=== PATIENT | male | born 2000 | race Caucasian/White ===

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

== ENCOUNTER 2022-02-24 10:51 | Day surgery (SDC) | payer BC, SELFPAY ==
[2022-02-24] VITALS (7 sets, daily range): BP systolic 110–138; BP diastolic 71–81; PULSE 57–74; RESP 16; TEMP 36.4–36.6; O2SAT 93–100; BMI 25.8
--- NOTE | 2022-02-24 | GASB_PTH ---
PATIENT: WES GILLIS LOC: EN U#:[id number] AGE/SX: 21/M ROOM: RE02/24/[address]: Dr. Juan C Kirby DO : 2000 BED: DIS: 02/24/2022 SPEC #: [id number] RECD: 02/24/22 14:09 STATUS: CHERYL MARISOL #: [id number] EBENEZER: 02/24/22 00:[address]: Juan C Kirby DEPT: SURGICAL PATHOLOGY RECD BY: Raymond Elizabeth ENTERED: 02/25/22 10:47 SP TYPE: Gastric Bx OT DR: Dr. Ha Huang MD Tissues: A - Gastric mucous membrane B - Duodenum, NOS C - Esophageal mucous membrane Procedures: Special Stain Group II Surgery Specimen Level IV Alcian Blue/PAS (control) HEADER OPERATION: EGD ([facility]) PRE-OP DIAGNOSIS: Epigastric pain TISSUE SUBMITTED: A ? Biopsy gastric body, B ? Biopsy duodenum, C ? Biopsy distal esophagus MICROSCOPIC DIAGNOSIS A. Gastric body, biopsy: Chronic gastritis. See comment. B. Duodenum, biopsy: Mild nonspecific chronic inflammation. C. Distal esophagus, biopsy: Gastroesophageal junctional mucosa with mild chronic inflammation. No evidence of goblet cell metaplasia. See comment. AM:isela 02/28/2022 COMMENT A. The results of immunohistochemistry for Helicobacter pylori will be reported separately ([id number]). C. Alcian blue/PAS stain with matched control supports the above diagnosis. MICROSCOPIC DESCRIPTION Slides are reviewed. GROSS DESCRIPTION A - Received in fixative is one container labeled with the patient's name and designated gastric body. The specimen consists of multiple irregular fragments of light wayne soft tissue that in aggregate measure 1.5 x 1 x 0.1 cm. The specimen is totally submitted in one cassette. B - Received in fixative is one container labeled with the patient's name and designated biopsy duodenum. The specimen consists of multiple irregular fragments of light wayne soft tissue that in aggregate measure 1 x 0.4 x 0.1 cm. The specimen is totally submitted in one cassette. C - Received in fixative is one container labeled with the patient's name and designated distal esophagus. The specimen consists of multiple irregular fragments of light wayne soft tissue that in aggregate measure 1 x 0.3 x 0.1 cm. The specimen is totally submitted in one cassette. / RADHA:isela 02/25/2022 TC:3 CPT: 49838 x3, 15599
[2022-02-24] MEDS: Lactated Ringers 1,000 ML 15 ML IV (11:41)
--- NOTE | 2022-02-24 12:00 | IMM_PTH ---
PATIENT: WES GILLIS LOC: EN U#:[id number] AGE/SX: 21/M ROOM: RE02/24/[address]: Dr. Juan C Kirby DO : 2000 BED: DIS: 02/24/2022 SPEC #: [id number] RECD: 02/25/22 13:19 STATUS: CHERYL REShantanu #: [id number] EBENEZER: 02/24/22 12:[address]: Juan C Kirby DEPT: IMMUNOHISTOCHEMISTRY RECD BY: Julia Worley ENTERED: 02/25/22 13:20 SP TYPE: IMMUNO OTHR DR: Dr. Ha Huang MD Tissues: A - Stomach, NOS Procedures: H Pylori (initial) PHYSICIAN & INSTITUTION [place] [address] SPECIMEN INFORMATION: Tissue Source: A ? Gastric body Clinical Info: Epigastric pain Specimen Number: [id number] CPT code: 56464 METHODOLOGY: Deparaffinized sections of prefer/formalin-fixed tissue or PAP/DQ stained slides are incubated with monoclonal/polyclonal antibodies/oligonucleotide probes. Localization is made via biotin free immunoperoxidase method. Appropriate controls are performed and reacted as expected. Results on target cell population are indicated in the following table: RESULTS: ANTIBODY / CLONE RESULT Block A H Pylori (polyclonal) negative These tests were developed and their performance characteristics determined by [facility]. They may not have been cleared or approved by the U.S. Food and Drug Administration. The FDA has determined that such clearance or approval is not necessary. The above immunohistochemical/dualISH markers are ordered and reviewed by the Pathologist. INTERPRETATION: A. Gastric body, biopsy: Negative for Helicobacter pylori organisms. AM:isela 02/28/2022
--- NOTE | 2022-02-24 12:07 | HP.PCM_ITS ---
History and Physical Date of Admission: 02/24/22 WES GILLIS, is a 21 M who presents to the office today for postprandial epigastric pain x 4 mos. Pain after he eats anything, pain is severe, feels like exploding, starts immediately. Doesn't matter what the food is. Doesn't occur if he consumes just liquids. Pain can last up to 2 hours. No better with omeprazole. No radiating pain. He initially lost weight but then gained it back when he forced himself to eat. No nausea, vomiting, cough, dysphagia, diarrhea, constipation, hematochezia, melena. Gallbladder US--small amt sludge HIDA scan normal Hx multiple orthopedic surgeries, hx tonsillectomy ROS Const Constitutional: No fatigue ENT ENT: No difficulty swallowing Gastro GI: Positive for abdominal pain; No belching, bloating, change in bowel habits, change in stool character, coffee ground emesis, constipation, cramping, diarrhea, heartburn, difficulty swallowing, feeling full early, excessive flatus, incontinent of stools, Vomiting blood/hematemesis, Blood in stool, loose stools, Black,tarry stools, nausea/dyspepsia, pain with swallowing, vomiting or other Musc Musculoskeletal: No joint pain Skin Skin: No yellowing of the eye or itchy eyes Psych Psychiatric: No anxiety and No depression Endo Endocrine: No fatigue Aller/Imm Allergy/Immunologic: No itchy eyes Bj/Lymp Hematologic/Lymphatic: No easy bleeding or easy bruising Exam Const General: cooperative, healthy appearing, no acute distress, well developed and well groomed Eyes Conjunctivae: conjunctivae normal Sclera: sclerae normal Resp Effort & Inspection: normal respiratory effort GI Inspection: normal to inspection Palpation: soft, no hepatosplenomegaly and tender in the epigastrum Quality Reporting Tobacco Screening ([facility] 138) Smoking Status: Never smoker Assessment and Plan Assessment and Plan (1) Epigastric pain: Status: Acute Orders: Orders: H. PYLORI STOOL AG Today Plan - Darlene Razo NP, TRUSS DESIGNER-C: 21 yr old male with 4 mos of severe postprandial epigastric pain, not improved with PPI therapy. DDx gastritis, H pylori, peptic or duodenal ulcer. Start sucralfate. Check stool for H Pylori. EGD is scheduled for 02/24/22. Case discussed with Dr Kirby. Plan Details Other Medications: New: sucralfate 1 g PO QACHS 30 days 120 tabs 0RF I have re-examined the patient. There are no clinical changes since date of exam.
--- NOTE | 2022-02-24 12:26 | OP.EGD_ITS ---
Patient Name: Dominic Trent Procedure Date: 02/24/2022 12:01 PM Date of : 2000 Age: 21 Procedure: Upper GI endoscopy Indications: Epigastric abdominal pain Providers: Juan C Kirby DO Medicines: See the Anesthesia note for documentation of the administered medications Patient Profile: This is a 21 year old male. Refer to note in patient chart for documentation of history and physical. Patient has symptoms. Complications: No immediate complications. Procedure: Pre-Anesthesia Assessment: - Prior to the procedure, a History and Physical was performed, and patient medications and allergies were reviewed. The patient is competent. The risks and benefits of the procedure and the sedation options and risks were discussed with the patient. All questions were answered and informed consent was obtained. Patient identification and proposed procedure were verified by the physician in the pre-procedure area. Mental Status Examination: alert and oriented. Airway Examination: normal oropharyngeal airway and neck mobility. Respiratory Examination: clear to auscultation. CV Examination: normal. ASA Grade Assessment: II - A patient with mild systemic disease. After reviewing the risks and benefits, the patient was deemed in satisfactory condition to undergo the procedure. The anesthesia plan was to use moderate sedation / analgesia (conscious sedation). Immediately prior to administration of medications, the patient was re-assessed for adequacy to receive sedatives. The heart rate, respiratory rate, oxygen saturations, blood pressure, adequacy of pulmonary ventilation, and response to care were monitored throughout the procedure. The physical status of the patient was re-assessed after the procedure. After obtaining informed consent, the endoscope was passed under direct vision. Throughout the procedure, the patient's blood pressure, pulse, and oxygen saturations were monitored continuously. The Endoscope was introduced through the mouth, and advanced to the second part of duodenum. The upper GI endoscopy was accomplished without difficulty. The patient tolerated the procedure well. Moderate Sedation: Moderate (conscious) sedation was administered by the endoscopy nurse and supervised by the endoscopist. The patient's oxygen saturation, heart rate, blood pressure and response to care were monitored. Total physician intraservice time was 15 minutes. Scope In: 12:14:15 PM Scope Out: 12:20:25 PM Total Procedure Duration Time 0 hours 6 minutes 10 seconds Findings: LA Grade A (one or more mucosal breaks less than 5 mm, not extending between tops of 2 mucosal folds) esophagitis with no bleeding was found 37 to 40 cm from the incisors. Biopsies were taken with a cold forceps for histology. Verification of patient identification for the specimen was done. Estimated blood loss was minimal. Patchy mildly erythematous mucosa without bleeding was found in the gastric body. Biopsies were taken with a cold forceps for histology. Verification of patient identification for the specimen was done. Estimated blood loss was minimal. Patchy mildly erythematous mucosa without active bleeding and with no stigmata of bleeding was found in the duodenal bulb, in the first portion of the duodenum and in the second portion of the duodenum. Biopsies were taken with a cold forceps for histology. Verification of patient identification for the specimen was done. Estimated blood loss was minimal. Impression: - LA Grade A reflux esophagitis. Biopsied. - Erythematous mucosa in the gastric body. Biopsied. - Erythematous duodenopathy. Biopsied. Recommendation: - Discharge patient to home. - Resume previous diet. - Continue present medications. Procedure Code(s): --- Professional --- 96041, Esophagogastroduodenoscopy, flexible, transoral; with biopsy, single or multiple 50131, 59, Moderate sedation services provided by the same physician or other qualified health urgent care physician assistant performing the diagnostic or therapeutic service that the sedation supports, requiring the presence of an independent trained observer to assist in the monitoring of the patient's level of consciousness and physiological status; initial 15 minutes of intraservice time, patient age 5 years or older CPT copyright 2017 [employer]. All rights reserved. The codes documented in this report are preliminary and upon laboratory clerk review may be revised to meet current compliance requirements. Juan C Kirby DO 02/24/2022 12:26:13 PM This report has been signed electronically. Number of Addenda: 1 Note Initiated On: 02/24/2022 12:01 PM Addendum Number: 1 Addendum Date: 08/18/2022 6:44:28 AM MAC was used as sedation for this procedure. Juan C Kirby DO 08/18/2022 6:44:34 AM This report has been signed electronically.
--- NOTE | 2022-02-24 12:27 | OP.CCLET_ITS ---
08/18/2022 Ha Huang [address] [place] [address] [place] [address] Re : Upper GI endoscopy procedure for Dominic Angman Dear Dr. Huang This procedure was performed on February. My impressions and recommendations are as follows: Impressions : - LA Grade A reflux esophagitis. Biopsied. - Erythematous mucosa in the gastric body. Biopsied. - Erythematous duodenopathy. Biopsied. Recommendations : - Discharge patient to home. - Resume previous diet. - Continue present medications. My findings are described in the full procedure note, which is enclosed. If I can be of further assistance, please feel free to contact me at . Sincerely, Juan C Kirby, 02/24/2022 12:26:13 PM This report has been signed electronically.
== END 2022-02-24 23:59 | disposition home or self-care (01) ==
LOC: EN 11:00 → AC 11:00
PROVIDERS: PCP Family Medicine; Referring Provider Internal Medicine Gastroenterology; Visit Provider Internal Medicine Gastroenterology
PROC: 0DJ08ZZ Inspection of Upper Intestinal Tract, Via Natural or Artificial Opening Endoscopic (ICD-10-PCS; CPT 43235; principal; 2022-02-24 11:55)
DX: K21.00 Gastro-esophageal reflux disease with esophagitis, without bleeding (principal); K31.89 Other diseases of stomach and duodenum; K29.50 Unspecified chronic gastritis without bleeding; F17.200 Nicotine dependence, unspecified, uncomplicated
CPT/HCPCS: 43239; 87426; 88305; 88313; 88342; J7120; J2405